=== PATIENT | male | born 1955 ===

== ENCOUNTER → 2017-11-15 | Emergency (ER) | payer OTHER ==
[~2017-11-15] VITALS: Ht 182.9 cm; Wt 85.3 kg
== END | disposition home or self-care (01) ==
LOC: ER 18:28 → CPU-OBS 19:59
DX: R42 Dizziness and giddiness (principal)
CPT/HCPCS: G0378; G0379; 93005

== ENCOUNTER → 2019-04-04 | Outpatient (CLI) | payer OTHER | END | disposition home or self-care (01) | LOC: RAD 11:46 | DX: Z01.818 Encounter for other preprocedural examination (principal); H25.012 Cortical age-related cataract, left eye; Z98.42 Cataract extraction status, left eye ==